=== PATIENT | male | born 1955 | race Caucasian/White ===

== ENCOUNTER 2018-03-18 14:52 | Emergency (ER) | payer MEDICARE, MEDICAID ==
[~2018-03-18] VITALS: Ht 175.3 cm; Wt 63.5 kg
[2018-03-18 17:15] VITALS: BP 136/90
== END 2018-03-18 17:19 | disposition home or self-care (01) ==
LOC: ER 14:52
DX: K43.9 Ventral hernia without obstruction or gangrene (principal); F12.10 Cannabis abuse, uncomplicated; F17.210 Nicotine dependence, cigarettes, uncomplicated